=== PATIENT | male | born 1995 ===

== ENCOUNTER 2023-06-01 04:08 | Day surgery (SDC) | payer OTHER ==
[2023-05-31 12:46] VITALS: BMI 24.3
[2023-06-01] MEDS ORDERED: DEXAMETHASONE SOD PHOSPHATE 10 MG/1 ML VIAL ONE (07:19)
[2023-06-01] MEDS ORDERED: LIDOCAINE HCL/PF 1% SDV 5ML VIAL ONE (07:19)
[2023-06-01 10:53] VITALS: RESP 18
[2023-06-01] MEDS: LIDOCAINE HCL 1% PRESERVATIVE FREE - 30ML VIAL IJ ONE (12:50)
[2023-06-01] MEDS: IOHEXOL 180 MG/1 ML ML IJ ONE (12:52)
[2023-06-01] MEDS: DEXAMETHASONE SOD PHOSPHATE 10 MG/1 ML VIAL IM ONE (12:56)
[2023-06-01 13:49] VITALS: BP 136/83; PULSE 89; TEMP 97.8
== END 2023-06-01 13:36 | disposition home or self-care (01) ==
LOC: JASU-SURG 04:08
PROVIDERS: ATTEND Pain Medicine Pain Medicine
PROC: 3E0R3BZ Introduction of Anesthetic Agent into Spinal Canal, Percutaneous Approach (ICD-10-PCS; 2023-06-01)
PROC: 3E0R33Z Introduction of Anti-inflammatory into Spinal Canal, Percutaneous Approach (ICD-10-PCS; principal; 2023-06-01 11:30)
DX: M54.16 Radiculopathy, lumbar region (principal)
CPT/HCPCS: 76000-TC-FY; J1100